=== PATIENT | female | born 1990 | race Caucasian/White ===

== ENCOUNTER 2017-11-13 14:40 | Observation (INO) ==
[2017-11-13] MEDS ORDERED: Ringers Solution, Lactated 1,000 ML IVC ONE (14:59)
[2017-11-13] MEDS ORDERED: Ondansetron 4 MG/2 ML VIAL IVP PRN (15:00)
[2017-11-13] MEDS ORDERED: Ringers Solution, Lactated 1,000 ML IVC SCH (15:00)
--- NOTE | 2017-11-13 15:52 | OB/GYN Progress Note ---
Date of Encounter: 11/13/17 Time of Encounter: 15:50 - Assessment and Plan (1) Nausea and vomiting during Current Visit: Yes Status: Acute Zofran PRN immodium prn (2) 24 weeks gestation of Current Visit: No Status: Acute Follow-up with Dr. Faust labor precautions Discharge home Subjective - Subjective Principal diagnosis: n/v in Interval history: Ms. Lynne is a 27-year-old at 24 weeks 5 days gestation who presents with a two-day history of nausea and vomiting with some cramping and diarrhea. Last emesis was last night and last diarrhea was on arrival to hospital today. She reports she is also GDMA on insulin and has spent the last 24-48 hours chasing blood glucose from low to high. She reports good movement and denies contractions, leakage of fluid, vaginal bleeding. Antepartum ROS: new complaints, movement normal, no loss of fluid, no vaginal bleeding, no contractions Objective - Vital Signs Vital Signs: Intake and Output 11/12/17 11/13/17 11/13/17 23:59 07:59 15:59 Other: Weight 83.4 kg Patient Weight 11/13/17 23:59 Weight 83.4 kg - Exam FHR: auscultation normal Auscultation: bilateral: normal Abdomen: Present: normal appearance, soft, gravid Uterus: Present: normal, firm
== END 2017-11-13 18:00 | disposition home or self-care (01) ==
LOC: 1NENULAB
PROVIDERS: ADMIT Obstetrics & Gynecology; ATTEND Obstetrics & Gynecology

== ENCOUNTER 2018-01-15 16:40 | Observation (INO) ==
[2018-01-15 16:28] LABS: Amphetamine Screen,Urine Negative ng/mL (Cutoff=1000); Barbiturate Screen,Urine Negative ng/mL (Cutoff=200); Benzodiazepines Screen,Urine Negative ng/mL (Cutoff=300); Bilirubin,Urine Negative (Negative); Blood,Urine Negative (Negative); Cannabinoid Screen,Urine Negative ng/mL (Cutoff = 50); Clarity,Urine Cloudy (Clear); Cocaine Screen,Urine Negative ng/mL (Cutoff= 300); Color,Urine Yellow (Yellow); Glucose,Urine (UA) Normal (Normal); Ketones,Urine Trace mg/dL (Negative); Leukocyte Esterase,Urine Small (Negative); Nitrite,Urine Negative (Negative); Opiate Screen,Urine Negative ng/mL (Cutoff=300); PH,Urine 6.5 pH Units (5.0-8.0); Phencyclidine Screen,Urine Negative ng/mL (Cutoff=25); Protein,Urine Negative (Neg-Trace); Specific Gravity,Urine 1.009 (1.010-1.025); Urobilinogen,Urine Normal (Normal)
[2018-01-15 16:31] LABS: Bacteria,Urine Few per hpf (None-Few); Hyaline Casts,Urine None Seen per lpf (None-Few); RBC,Urine 0-3 per hpf (0-3); Squamous Epithelial Cell,Urine Many per lpf (None-Few)
--- NOTE | 2018-01-15 17:17 | Discharge Summary ---
Date of Encounter: 01/15/18 Time of Encounter: 17:16 - Discharge Diagnosis (1) Non-reactive NST (non-stress test) Priority: Secondary Status: Acute Comments: FHR 135 bpm moderate variability +15x15 accels no decels noted. Uterine irritability noted. Cat. 1 tracing. (2) Gestational diabetes Priority: Secondary Status: Acute Comments: well controlled Qualifiers: Gestational diabetes mellitus control: diet-controlled Trimester: third trimester Qualified Code(s): O24.410 - Gestational diabetes mellitus in , diet controlled (3) 33 weeks gestation of Priority: Primary Status: Acute Comments: admitted for observation SVE: Closed/THick/-3 false labor - Discharge Medications Home Medications: Insulin NPH [HumuLIN NPH] 14 unit SQ BID 11/13/17 [History] Vit/Iron Fumarate/FA [ Tablet] 1 each PO DAILY 11/13/17 [ History] Allergies/Adverse Reactions: 3 Allergy/AdvReac Type Severity Reaction Status Date / Time No Known Allergies Allergy Verified 09/02/15 19:38 Data Procedures and tests throughout hospitalization: Laboratory Tests 01/15/18 01/15/18 16:00 16:00 Urine Color Yellow Urine Clarity Cloudy A Urine pH 6.5 Ur Specific [place] 1.009 L Urine Protein Negative Urine Glucose (UA) Normal Urine Ketones Trace H Urine Blood Negative Urine Nitrite Negative Urine Bilirubin Negative Urine Urobilinogen Normal Ur Leukocyte Esterase Small H Urine Microscopic RBC 0-3 Urine Microscopic WBC 3-5 H Ur Squamous Epith Cells Many H Urine Bacteria Few Hyaline Casts None Seen Ur Culture Indicated? NO. A Urine Opiates Screen Negative Ur Barbiturates Screen Negative Ur Phencyclidine Scrn Negative Ur Amphetamines Screen Negative U Benzodiazepines Scrn Negative Urine Cocaine Screen Negative U Marijuana (THC) Screen Negative Ur Drug Screen Interp See Below Labs on day of discharge: Labs from last 24 hours 01/15/18 01/15/18 16:00 16:00 Urine Color Yellow Urine Clarity Cloudy A Urine pH 6.5 Ur Specific [place] 1.009 L Urine Protein Negative Urine Glucose (UA) Normal Urine Ketones Trace H Urine Blood Negative Urine Nitrite Negative Urine Bilirubin Negative Urine Urobilinogen Normal Ur Leukocyte Esterase Small H Urine Microscopic RBC 0-3 Urine Microscopic WBC 3-5 H Ur Squamous Epith Cells Many H Urine Bacteria Few Hyaline Casts None Seen Ur Culture Indicated? NO. A Urine Opiates Screen Negative Ur Barbiturates Screen Negative Ur Phencyclidine Scrn Negative Ur Amphetamines Screen Negative U Benzodiazepines Scrn Negative Urine Cocaine Screen Negative U Marijuana (THC) Screen Negative Ur Drug Screen Interp See Below Date of admission: 01/15/18 15:29 Primary care physician: PCP NONE Discharging clinician: Stephanie Bentley Anticipated date of discharge: 01/15/18 - Patient Status Disposition: Home, Self-Care Condition: Good Functional capacity at discharge: independent ambulation - Discharge Instructions Follow Up With: NONE,PCP [Primary Care Provider] - Jefferson Faust DO [Partnered Physician] - Forms: Work/School Release - Diet and Activity Activity: increase activity as tolerated Diet: diabetic diet Hospital Course [facility] Hospital course: Patient is a 27 y/o at 33w5d presents to labor and delivery with complaints of contractions off and on. Patient states prior to coming in to labor and delivery she had 6 contractions in a hour. Patient denies LOF or VB. Patient reports +FM. Time Attestation: Total time spent providing and/or coordinating discharge services: Time Spent: Less than 30 minutes Exam - Constitutional General appearance IM: A&O X 3, pleasant, answers questions appropriately - Respiratory Respiratory exam: Present: CTAB - Cardiovascular Cardiovascular exam IM: Present: RRR, +S1, +S2 - GI/Abdominal GI/Abdominal exam IM: normal bowel sounds - Extremities Exam Extremities exam IM: Present: full ROM, normal capillary refill, normal inspection - Neurological Exam Neurological exam: alert, oriented X3, reflexes normal - VTE Reasons for not Prescribing Prophylaxis: Treatment not Indicated - Low risk for VTE
== END 2018-01-15 17:30 | disposition home or self-care (01) ==
LOC: 1NENULAB
PROVIDERS: ADMIT Obstetrics & Gynecology; ATTEND Obstetrics & Gynecology

== ENCOUNTER 2018-02-09 12:16 | Inpatient (IN) ==
[2018-02-09 13:28] LABS: Amphetamine Screen,Urine Negative ng/mL (Cutoff=1000); Barbiturate Screen,Urine Negative ng/mL (Cutoff=200); Benzodiazepines Screen,Urine Negative ng/mL (Cutoff=200); Cannabinoid Screen,Urine Negative ng/mL (Cutoff = 50); Cocaine Screen,Urine Negative ng/mL (Cutoff= 300); Opiate Screen,Urine Negative ng/mL (Cutoff=300); Phencyclidine Screen,Urine Negative ng/mL (Cutoff=25)
[2018-02-09] MEDS ORDERED: Ondansetron 4 MG/2 ML VIAL IVP PRN (16:01)
[2018-02-09] MEDS ORDERED: Metoclopramide 10 MG/2 ML VIAL IVP PRN (16:01)
[2018-02-09] MEDS ORDERED: *HR* Nalbuphine 10 MG/ML AMPUL IVP PRN (16:01)
[2018-02-09] MEDS ORDERED: Famotidine 20 MG/2 ML VIAL IVP PRN (16:01)
[2018-02-09] MEDS ORDERED: Naloxone 0.4 MG/ML INJ IVP PRN (16:01)
--- NOTE | 2018-02-09 16:09 | OB/GYN History & Physical ---
Date of Encounter: 02/09/18 Time of Encounter: 16:05 Assessment and Plan (1) 37 weeks gestation of Current visit: Yes Status: Acute (2) Intrauterine Current visit: Yes Status: Acute Admit to L&D for spontaneous labor Expectant management Labs - CBC and clot to hold Continuous electronic monitoring Pain management plan-natural childbirth Anticipate Dr. Jason is OB kindergarten paraprofessional and is available as needed (3) Intact amniotic membranes during in third trimester Current visit: Yes Status: Acute (4) Gestational diabetes Current visit: No Status: Acute Qualifiers: Gestational diabetes mellitus control: diet-controlled Trimester: third trimester Qualified Code(s): O24.410 - Gestational diabetes mellitus in , diet controlled History of Present Illness Chief complaint: Contractions HPI: Ms. Lynne is a 27 year old female 013 at 37 weeks 2 days gestation with an estimated date of is 02/24/18 dated by early ultrasound. She presents with complaints of contractions every 10 minutes that began in the office she was having an NST. She endorses good movement and denies leakage of fluid and vaginal bleeding. Her course has been complicated by gestational diabetes. She has been seen by Dr. Faust throughout her . records are available electronically and have been reviewed. Labs: O+ GBS negative Hep B negative HIV negative RPR nonreactive GC/CL negative Rubella nonimmune Varicella nonimmune Past Med Surg Social Fam HX - Past Medical History Medical history: migraine, other Additional medical history: Psychiatric history: no psych history - Past Surgical History Surgical History: cholecystectomy Additional surgical history: lip - Social History Smoking Status: Never smoker Smokeless Tobacco Status: No Alcohol use: none Drug use: none - Family History Mother Adopted: No Family Member Ethnicity: Non- Living Status: Still Living Hx Family Cardiac Disorders: No Hx Family Respiratory Disorders: No Hx Family Cancer: Yes (cervical) Hx Family GI Disorders: No Hx Family Endocrine Disorder: No Hx Family Neuromuscular Disorders: No Hx Family Neurologic Disorders: No Hx Family HEENT Disorders: No Hx Family Autoimmune Disorders: No Obstetrical History - Pregnancies : 5 Para: 3 Term: 3 (# 1: 03/21/2011, vaginal delivery, EGA 38 weeks, female, 6-5#; gestational diabetes mellitus; # 2: 05/31/13,Ramandeep,Vaginal,Female,Full term,6 #6oz; # 4: 7-29-16 39w , normal spontaneous vaginal delivery (),male 6lbs 12oz "Christblairer") : 0 Ab's: 1 (# 3 miscarriage) Livin Medications and Allergies Insulin NPH [HumuLIN NPH] 24 unit SQ BID 11/13/17 [History] Admelog 12 units SQ BID 02/09/18 [History] 3 Allergy/AdvReac Type Severity Reaction Status Date / Time No Known Allergies Allergy Verified 02/09/18 12:35 Review of System OB All systems PM: reviewed and no additional remarkable complaints except as stated Exam - Constitutional Constitutional: well developed, well nourished, average body habitus, mild distress - HEENT HEENT: Normocephaly, Mucus Membranes Moist - Neck Neck exam: full ROM - Lungs Respiratory exam: CTAB - Cardiovascular Cardiovascular exam: RRR, +S1, +S2 - Breasts Breast: bilateral: normal - Abdomen Abdomen: Present: bowel sounds normal, gravid, non tender - Extremities Extremities exam: normal capillary refill, normal inspection, radial pulses palpable and symmetrical - Vulva Vulva: bilateral: normal - Vagina Vagina: Present: normal moisture - Cervix Dilation: 6 Effacement: 70 Station: -2 - Uterus Uterus exam: Present: normal size, normal contour - Adnexa Adnexa: bilateral: normal - Anus/Rectum Anus/Rectum: Present: normal perianal skin Results All other labs normal. - VTE Reasons for not Prescribing Prophylaxis: Treatment not Indicated - Low risk for VTE
[2018-02-09] MEDS ORDERED: Ringers Solution, Lactated 1,000 ML IVC SCH (16:15)
[2018-02-09 17:05] LABS: Basophils % 0.2 %; Eosinophils # 0.1 K/mcL (0.0-0.6); Eosinophils % 0.5 %; Hematocrit 31.5 % (35.3-44.9); Hemoglobin 10.1 g/dL (11.5-15.4); Immature Granulocytes % 0.5 % (0-4); Lymphocytes # 1.5 K/mcL (0.6-4.6); Lymphocytes % 13.9 %; Mean Corpuscular HGB Conc 32.1 g/dL (31.6-35.5); Mean Corpuscular Hemoglobin 25.4 pg (28.0-33.3); Mean Corpuscular Volume 79.3 fL (83.0-100.0); Monocytes # 0.6 K/mcL (0.0-1.3); Monocytes % 5.6 %; Neutrophils # 8.5 K/mcL (1.6-8.9); Platelet Count 217 K/mcL (140-400); Red Blood Count 3.97 M/mcL (3.82-4.97); Red Cell Distribution Width 13.5 % (11.5-14.5); Segmented Neutrophils % 79.3 %
[2018-02-09] MEDS ORDERED: Oxytocin 20 units/ LR 1000 mL 20 UNIT/1,000 ML BAG IVC ONE (18:30)
[2018-02-09] MEDS ORDERED: Oxytocin 20 units/ LR 1000 mL 20 UNIT/1,000 ML BAG IVC SCH (20:45)
--- NOTE | 2018-02-09 21:02 | OB Labor Progress Note ---
Date of Encounter: 02/09/18 Time of Encounter: 21:00 Labor Progress Note - Subjective Subjective: Patient reports mild to moderate discomfort with contractions - Cervix Cervix: 6-7/70/-2 - Heart Tones Heart Tones: FHR Category I - [place]: Contractions every 3+ minutes - Interventions Interventions: SVE AROM-large amount clear fluid - Plan Plan: Continue expectant management Frequent position changes Anticipate
--- NOTE | 2018-02-09 23:29 | OB Labor Progress Note ---
Date of Encounter: 02/09/18 Time of Encounter: 23:28 Labor Progress Note - Subjective Subjective: Pt becoming more uncomfortable with contractions. - Cervix Cervix: 8/70/-1 - Heart Tones Heart Tones: FHR category I - [place]: Contractions every 5-7 minutes and palpate strong - Interventions Interventions: SVE IUPC - Plan Plan: Continue expectant management Frequent position changes Anticipate
--- NOTE | 2018-02-10 01:33 | OB/GYN Procedure Note ---
Delivery - Delivery Date: 02/10/18 Provider: Kristie Smith Intrapartum events: none Delivery induction: none Delivery augmentation: rupture of membranes, pitocin Delivery monitor: external FHT, external uterine, internal uterine Anesthesia: none Quantitated Blood Loss: 200 - Infant (s) A Infant Delivery Date: 02/10/18 Infant Delivery Time: 01:12 Presentation: vertex Position: OA Route of delivery: Gender: Female Viability: Viable Pounds: 6 Ounces: 11 Weight Gram: 3.02 kg at 1 minute: 8 at 5 mins: 9 Shoulder Dystocia: not encountered Specimens collected: cord blood Placenta: spontaneous Cord: 3 umbilical vessels - Repair Episiotomy: none Laceration Description: Periurethral (bilateral and hemostatic) - Complications Delivery complications: none Delivery comments: This is a 27-year-old G5 now [id number] who is admitted for active labor. She progressed with Pitocin augmentation and AROM to the second stage of labor. She pushed for about 1 minute. She delivered a viable female , "Mando "ADALI over an intact perineum. Infant was placed on the maternal abdomen where she transition spontaneously. The umbilical cord was allowed to stop pulsating completely and then was double clamped by bouffant curtain machine tender and cut by FOB. No nuchal cord was identified. No shoulder dystocia was encountered. scores were 8 at 1 minute and 9 at 5 minutes. The weighed 6 lbs. 11 oz. (3020 g). The placenta delivered (Basilio) spontaneously, intact, with a three- vessel cord. Inspection revealed bilateral periurethral lacerations which were hemostatic. The uterus was firm with no active bleeding. EBL was 200 mL. Placenta and umbilical artery blood gases were not sent. There were no complications during the procedure. Mom and baby are skin to skin following delivery. - Disposition Mom disposition: stable in LDR Bard disposition: stable in LDR
[2018-02-10] MEDS ORDERED: Measles/Mumps/Rubella Vacc 0.5 ML VIAL SQ PRN (02:11)
[2018-02-10] MEDS ORDERED: Oxytocin 20 units/ LR 1000 mL 20 UNIT/1,000 ML BAG IVC SCH (02:11)
[2018-02-10] MEDS ORDERED: Acetaminophen 325 MG TABLET PO PRN (02:11)
[2018-02-10] MEDS ORDERED: Benzocaine/Menthol 56 GM AEROSOL SPRAY TP PRN (02:11)
[2018-02-10] MEDS: Ibuprofen 600 MG TABLET PO PRN ×4 (02:20→22:58)
[2018-02-10] MEDS: Prenatal Vit/FA 1 EACH TABLET PO SCH (10:03)
[2018-02-11 08:24] VITALS: BP 123/65
[2018-02-11] MEDS: Prenatal Vit/FA 1 EACH TABLET PO SCH (08:27)
[2018-02-11] MEDS: Ibuprofen 600 MG TABLET PO PRN (08:27)
--- NOTE | 2018-02-11 08:29 | Discharge Summary ---
Date of Encounter: 02/11/18 Time of Encounter: 08:26 - Discharge Diagnosis (1) Status post normal vaginal delivery Priority: Primary Status: Acute - Discharge Medications Prescriptions: Ibuprofen [Motrin] 600 mg PO Q6HR PRN #40 tablet PRN Reason: Cramping Ferrous Sulfate 325 mg PO DAILY #30 tablet Home Medications: Ferrous Sulfate 325 mg PO DAILY #30 tablet 02/11/18 [Rx] Ibuprofen [Motrin] 600 mg PO Q6HR PRN #40 tablet 02/11/18 [Rx] Allergies/Adverse Reactions: 3 Allergy/AdvReac Type Severity Reaction Status Date / Time No Known Allergies Allergy Verified 02/09/18 12:35 Data Procedures and tests throughout hospitalization: Laboratory Tests 02/09/18 02/09/18 02/09/18 12:29 16:40 17:55 WBC 10.7 RBC 3.97 Hgb 10.1 L Hct 31.5 L MCV 79.3 L MCH 25.4 L MCHC 32.1 RDW 13.5 Plt Count 217 MPV 12.0 Immature Gran % 0.5 Seg Neutrophils % 79.3 Lymphocytes % 13.9 Monocytes % 5.6 Eosinophils % 0.5 Basophils % 0.2 Neutrophils # 8.5 Lymphocytes # 1.5 Monocytes # 0.6 Eosinophils # 0.1 Basophils # 0.0 POC Glucose 80 Urine Opiates Screen Negative Ur Barbiturates Screen Negative Ur Phencyclidine Scrn Negative Ur Amphetamines Screen Negative U Benzodiazepines Scrn Negative Urine Cocaine Screen Negative U Marijuana (THC) Screen Negative Ur Drug Screen Interp See Below 02/09/18 02/09/18 02/10/18 21:00 23:08 09:58 WBC RBC Hgb Hct MCV MCH MCHC RDW Plt Count MPV Immature Gran % Seg Neutrophils % Lymphocytes % Monocytes % Eosinophils % Basophils % Neutrophils # Lymphocytes # Monocytes # Eosinophils # Basophils # POC Glucose 72 87 124 H Urine Opiates Screen Ur Barbiturates Screen Ur Phencyclidine Scrn Ur Amphetamines Screen U Benzodiazepines Scrn Urine Cocaine Screen U Marijuana (THC) Screen Ur Drug Screen Interp 02/10/18 02/10/18 11:32 16:38 WBC RBC Hgb Hct MCV MCH MCHC RDW Plt Count MPV Immature Gran % Seg Neutrophils % Lymphocytes % Monocytes % Eosinophils % Basophils % Neutrophils # Lymphocytes # Monocytes # Eosinophils # Basophils # POC Glucose 98 93 Urine Opiates Screen Ur Barbiturates Screen Ur Phencyclidine Scrn Ur Amphetamines Screen U Benzodiazepines Scrn Urine Cocaine Screen U Marijuana (THC) Screen Ur Drug Screen Interp Labs on day of discharge: Labs from last 24 hours 02/10/18 02/10/18 02/10/18 16:38 11:32 09:58 POC Glucose 93 98 124 H Date of admission: 02/09/18 12:16 Primary care physician: PCP NONE Consults: 02/10/18 02:11 Consult to Musician Instrumental [CONS] Routine Comment: Vaginal delivery, consult needed Discharging clinician: Christopher Jason Anticipated date of discharge: 02/11/18 - Patient Status Disposition: Home, Self-Care Condition: Good Functional capacity at discharge: independent ambulation Overall status at discharge: patient is progressing back to baseline - Discharge Instructions Follow Up With: NONE,PCP [Primary Care Provider] - Jefferson Faust DO [Partnered Physician] - - Diet and Activity Activity: increase activity as tolerated Diet: advance to your usual diet Hospital Course Reason for admission: active labor Delivery: Episiotomy: none Laceration: none complications: none Discharge diagnosis: IUP at term delivered [place] baby: female Hospital course: Patient is a 27-year-old female who was sent over from the office secondary to labor. Patient was in active labor upon arrival to labor and delivery progressed appropriately on her own patient delivered vaginally without any competitions patient was a A2 gestational diabetic we will have her stop her insulin at this time will do a 2 hour Glucola 6 weeks patient was having minimal pain minimal bleeding on hospital day #1 was related to go home she will be discharged home on Motrin 600 mg 1 every 6 as needed for pain and sulfate 325 mg 1 every day and she will follow up in 4 weeks patient's condition at time of discharge was stable Time Attestation: Total time spent providing and/or coordinating discharge services: Exam - Constitutional Vitals: Temp Pulse Resp BP Pulse Ox 98.1 F 92 16 123/65 98 02/11/18 08:23 02/11/18 08:23 02/11/18 08:23 02/11/18 08:23 02/11/18 08:23 General appearance IM: A&O X 3, no acute distress, answers questions appropriately - Respiratory Respiratory exam: Present: CTAB - Cardiovascular Cardiovascular exam IM: Present: RRR - GI/Abdominal GI/Abdominal exam IM: normal bowel sounds - Rectal Rectal exam: deferred - Uterus Position: At Umbilicus - Neurological Exam Neurological exam: normal gait
== END 2018-02-11 10:43 | disposition home or self-care (01) | DRG 560 ==
LOC: 1NENULAB → OBSVTOIN 12:16 → 1NENUOBS 02-10 04:11
PROVIDERS: ADMIT Advanced Practice Midwife; ATTEND Advanced Practice Midwife